=== PATIENT | female | born 1980 ===

== ENCOUNTER 2016-09-08 07:11 | Inpatient (IN) | payer MEDICAID, OTHER ==
[2016-09-08 07:20] VITALS: BMI 43.0
[2016-09-08] MEDS ORDERED: Sodium Chloride 0.9% 1,000 ML IV STA (07:26)
[2016-09-08] MEDS ORDERED: Morphine 4 mg/ml ISec IVP STA ×2 (07:26→08:14)
--- NOTE | 2016-09-08 07:33 | ED PDOC ---
Arrival/HPI - General Chief Complaint: Abdominal Pain Time Seen by Provider: 09/08/16 07:18 Historian: Patient - History of Present Illness Narrative History of Present Illness (Text): 09/08/16 07:22 Racquel Hope is a 36 year old female whose past medical history includes a Hysterectomy and a , who presents to the Emergency department for diffuse abdominal pain. Symptoms began two weeks ago but worsened last night. Patient states symptoms are accompanied with nausea and vomiting. Patient denies chest pain, shortness of breath, headache, fever, cough, changes in bowel habits, dysuria, hematuria, frequency, vaginal discharge, vaginal bleeding , or any other complaints at this time. PMD: None reported Time/Duration: 24 hours, > week (2 weeks) Symptom Onset: Gradual Symptom Course: Unchanged Activities at Onset: Light Context: Home Past Medical History - Provider Review Nursing Documentation Reviewed: Yes - Infectious Disease Hx of Infectious Diseases: None - Past Medical History Past Medical History: No Previous - Cardiac Hx Cardiac Disorders: No - Pulmonary Hx Respiratory Disorders: No - Neurological Hx Neurological Disorder: No - HEENT Hx HEENT Disorder: No - Renal Hx Renal Disorder: No - Endocrine/Metabolic Hx Endocrine Disorders: No - Hematological/Oncological Hx Blood Disorders: No - Integumentary Hx Dermatological Disorder: No - Musculoskeletal/Rheumatological Hx Musculoskeletal Disorders: No - Gastrointestinal Hx Gastrointestinal Disorders: No - Genitourinary/Gynecological Hx Genitourinary Disorders: No - Psychiatric Hx Anxiety: Yes Hx Depression: Yes Hx Substance Use: No - Surgical History Hx Section: Yes Hx Hysterectomy: Yes Hx Tonsillectomy: Yes - Anesthesia Hx Anesthesia: Yes Hx Anesthesia Reactions: No Hx Malignant Hyperthermia: No - Suicidal Assessment Feels Threatened In Home Enviroment: No Family/Social History - Physician Review Nursing Documentation Reviewed: Yes Family/Social History: No Known Family HX Smoking Status: Heavy Smoker > 10 Cigarettes Daily Hx Alcohol Use: No Hx Substance Use: No Substance used: marijuana Hx Substance Use Treatment: No Allergies/Home Meds Allergies/Adverse Reactions: Allergies No Known Allergies Allergy (Verified 09/08/16 07:22) Home Medications: Home Meds Medication Instructions Recorded Confirmed No Known Home Med 09/08/16 09/08/16 Review of Systems - Physician Review All systems were reviewed & negative as marked: Yes - Review of Systems Constitutional: Normal. absent: Fevers Eyes: Normal. absent: Vision Changes ENT: Normal Respiratory: Normal. absent: SOB, Cough Cardiovascular: Normal. absent: Chest Pain Gastrointestinal: Abdominal Pain (Diffuse Abdominal Pain), Nausea, Vomiting. absent: Diarrhea, Appetite Changes Genitourinary Female: Normal. absent: Dysuria, Frequency, Hematuria, Urine Output Changes Musculoskeletal: Normal. absent: Back Pain, Neck Pain Skin: Normal Neurological: Normal. absent: Headache, Dizziness Endocrine: Normal Hemo/Lymphatic: Normal Psychiatric: Normal Physical Exam Vital Signs Reviewed: Yes Vital Signs Temp Pulse Resp BP Pulse Ox 09/08/16 07:20 98.3 F 86 18 158/100 H 100 Temperature: Afebrile Blood Pressure: Hypertensive Pulse: Regular Respiratory Rate: Normal Appearance: Positive for: Well-Appearing, Non-Toxic, Uncomfortable Pain Distress: None Mental Status: Positive for: Alert and Oriented X 3 - Systems Exam Head: Present: Atraumatic, Normocephalic Pupils: Present: PERRL Conjunctiva: Present: Normal Mouth: Present: Moist Mucous Membranes Respiratory/Chest: Present: Clear to Auscultation, Good Air Exchange. No: Respiratory Distress, Accessory Muscle Use Cardiovascular: Present: Regular Rate and Rhythm, Normal S1, S2. No: Murmurs Abdomen: Present: Tenderness (RUQ Tenderness), Normal Bowel Sounds. No: Distention, Peritoneal Signs, Rebound, Guarding Neurological: Present: GCS=15, CN II-XII Intact, Speech Normal Skin: Present: Warm, Dry, Normal Color. No: Rashes Psychiatric: Present: Alert, Oriented x 3, Normal Insight, Normal Concentration Medical Decision Making ED Course and Treatment: 09/08/16 07:22 Impression: 36 year old female with diffuse abdominal pain accompanied with nausea and vomiting since yesterday. Differential Diagnosis include but are not limited to: Cholelithiasis Plan: -- Abdomen US -- Labs, UA -- Morphine -- IV Fluids -- Zofran -- Reassess and disposition Prior Visits: Notes and results from previous visits were reviewed. Patient was last seen in the ED on 01/21/16 for nausea and multiple episodes of diarrhea. Progress Notes: 09/08/16 08:10 Procedure: Sonographic evaluation of the abdomen. Dictator: David Noyola MD Impression: Fatty liver. Cholelithiasis. 09/08/16 08:22 Patient has persistent pain with leukocytosis and multiple episodes of vomiting in the ER. Dr. Lim on consult, who will rule out Cholecystitis with HIDA scan. Case discussed with surgical oncologist will be in touch Dr. Coelho. 09/08/16 09:19 EKG: Ordered, reviewed, and independently interpreted the EKG. Rate : 58 BPM Rhythm : Sinus Bradycardia Interpretation : No ST-segment elevations or depressions, no T-wave inversions, normal intervals. - Lab Interpretations Lab Results: 09/08/16 07:30 09/08/16 07:30 Lab Results 09/08/16 07:30: WBC 12.6 H D, RBC 4.43, Hgb 13.3, Hct 40.4, MCV 91.2, MCH 30.0, MCHC 32.9, RDW 14.9 H, Plt Count 266, MPV 12.4 H, Gran % 69.7 H, Lymph % (Auto) 19.7 L, [place] % (Auto) 6.5 H, Eos % (Auto) 3.8, Baso % (Auto) 0.3, Gran # 8.81 H , Lymph # 2.5, [place] # 0.8 H, Eos # 0.5, Baso # 0.04, PT 9.8 L, INR 0.91 L, APTT 30.1, Sodium 142, Potassium 4.0, Chloride 105, Carbon Dioxide 26, Anion Gap 15, BUN 15, Creatinine 0.9, Est GFR ( Amer) > 60, Est GFR (Non-Af Amer) > 60 , Random Glucose 126 H, Calcium 9.0, Total Bilirubin 0.8, Direct Bilirubin 0.4, AST 24, ALT 38, Alkaline Phosphatase 79, Total Protein 8.7 H, Albumin 4.3, Globulin 4.5, Albumin/Globulin Ratio 1.0 L, Lipase 197 I have reviewed the lab results: Yes - RAD Interpretation Narrative RAD Interpretations (Text): 09/08/16 08:10 Procedure: Sonographic evaluation of the abdomen. Dictator: David Noyola MD FINDINGS: LIVER: Measures cm. Heterogeneous echogenicity of the liver parenchyma. No mass. No intrahepatic bile duct dilatation. GALLBLADDER: Gallstones. No wall thickening. COMMON BILE DUCT: Measures mm. No stones. No dilatation. PANCREAS: Unremarkable as visualized. No mass. No ductal dilatation. RIGHT KIDNEY: Measures cm. Normal echogenicity. No calculus, mass, or hydronephrosis. LEFT KIDNEY: Measures cm. Normal echogenicity. No calculus, mass, or hydronephrosis. SPLEEN: Normal in size and contour. No mass. AORTA: No aneurysmal dilatation. IVC: Unremarkable. OTHER FINDINGS: None. Impression: Fatty liver. Cholelithiasis. Radiology Orders: 09/08/16 07:26 ABDOMEN COMPLETE [US] Stat 09/08/16 08:18 CXR [CHEST PORTABLE] [RAD] Stat [employer] Specialist: Radiologist - Medication Orders Current Medication Orders: Acetaminophen (Tylenol 325mg Tab) 650 mg PO Q6 PRN PRN Reason: Fever >100.4 F Heparin Sodium (Porcine) (Heparin) 5,000 units SC Q12 YOLI PRN Reason: Protocol Last Admin: 09/08/16 10:33 Dose: 5,000 UNITS Subcutaneous Administrations Document 09/08/16 10:33 [facility]AY (Rec: 09/08/16 10:33 [id number]) Injection Site MAR Injection Site Left Arm Charges for Administration # of Subcutaneous Administrations 1 Hydromorphone HCl (Dilaudid) 0.5 mg IVP Q4H PRN PRN Reason: Pain, severe (8-10) Last Admin: 09/08/16 17:09 Dose: 0.5 MG MAR Pain Assessment Document 09/08/16 17:09 MCKAY (Rec: 09/08/16 17:10 [id number]) Pain Reassessment Is this a pain reassessment? No Sleep Is patient sleeping during reassessment? No Presence of Pain Presence of Pain Yes Pain Scale Used Pain Scale Used Numeric Location Left, Right or Bilateral Right Upper or Lower Upper Pain Location Body Site Abdomen Description Description Constant Intensity of Pain at present 9 IVP Administration Document 09/08/16 17:09 MCKAY (Rec: 09/08/16 17:10 [id number]) Charges for Administration # of IVP Administrations 1 Sodium Chloride (Sodium Chloride 0.9%) 1,000 mls @ 100 mls/hr IV .Q10H YOLI Last Admin: 09/08/16 10:34 Dose: 100 MLS/HR eMAR Start Stop Document 09/08/16 10:34 [facility]AY (Rec: 09/08/16 10:34 [id number]) Intravenous Solution Start Date 09/08/16 Start Time 10:34 Ceftriaxone Sodium (Rocephin 1 Gram Ivpb) 100 mls @ 100 mls/hr IVPB DAILY YOLI PRN Reason: Protocol Last Admin: 09/08/16 10:33 Dose: 100 MLS/HR eMAR Start Stop Document 09/08/16 10:33 [facility]AY (Rec: 09/08/16 10:34 [id number]) Intravenous Solution Start Date 09/08/16 Start Time 10:33 End Date 09/08/16 End time 11:34 Total Infusion Time 61 Metronidazole (Flagyl) 100 mls @ 100 mls/hr IVPB Q8 YOLI PRN Reason: Protocol Last Admin: 09/08/16 14:45 Dose: 100 MLS/HR eMAR Start Stop Document 09/08/16 14:45 MCKAY (Rec: 09/08/16 16:34 [id number]) Intravenous Solution Start Date 09/08/16 Start Time 14:45 End Date 09/08/16 End time 15:45 Total Infusion Time 60 Nicotine (Nicoderm Cq) 1 patch TD DAILY [facility] Last Admin: 09/08/16 10:33 Dose: 1 PATCH MAR Patch Placement/Removal Document 09/08/16 10:33 MCKAY (Rec: 09/08/16 10:33 [id number]) Patch Removal Removal of previous patch done No: First Patch Patch Placement Left, Right or Bilateral Right Upper or Lower Upper Pain Location Body Site Arm Ondansetron HCl (Zofran Inj) 4 mg IVP Q6H PRN PRN Reason: Nausea/Vomiting Pantoprazole Sodium (Protonix Inj) 40 mg IVP DAILY [facility] Last Admin: 09/08/16 10:32 Dose: 40 MG IVP Administration Document 09/08/16 10:32 MCKAY (Rec: 09/08/16 10:32 [id number]) Charges for Administration # of IVP Administrations 1 Discontinued Medications Sodium Chloride (Sodium Chloride 0.9%) 1,000 mls @ 1,000 mls/hr IV .Q1H STA Stop: 09/08/16 08:25 Last Admin: 09/08/16 07:35 Dose: 1,000 MLS/HR eMAR Start Stop Document 09/08/16 07:35 [facility] (Rec: 09/08/16 07:36 [facility] [id number]) Intravenous Solution Start Date 09/08/16 Start Time 07:35 End Date 09/08/16 End time 08:36 Total Infusion Time 61 Piperacillin Sod/Tazobactam Sod (Zosyn 3.375 In Ns 100ml) 100 mls @ 200 mls/hr IVPB STAT STA PRN Reason: Protocol Stop: 09/08/16 09:08 Last Admin: 09/08/16 09:00 Dose: 200 MLS/HR eMAR Start Stop Document 09/08/16 09:00 [facility] (Rec: 09/08/16 09:00 [facility] [id number]) Intravenous Solution Start Date 09/08/16 Start Time 09:00 End Date 09/08/16 End time 09:30 Total Infusion Time 30 Morphine Sulfate (Morphine) 4 mg IVP STAT STA Stop: 09/08/16 07:27 Last Admin: 09/08/16 07:33 Dose: 4 MG MAR Pain Assessment Document 09/08/16 07:33 [facility] (Rec: 09/08/16 07:35 [facility] [id number]) Pain Reassessment Is this a pain reassessment? No Sleep Is patient sleeping during reassessment? No Presence of Pain Presence of Pain Yes Pain Scale Used Pain Scale Used Numeric Location Left, Right or Bilateral Right Upper or Lower Upper Pain Location Body Site Abdomen Description Description Sharp Intensity of Pain at present 10 IVP Administration Document 09/08/16 07:33 [facility] (Rec: 09/08/16 07:35 [id number]) Charges for Administration # of IVP Administrations 1 Morphine Sulfate (Morphine) 4 mg IVP STAT STA Stop: 09/08/16 08:15 Last Admin: 09/08/16 08:21 Dose: 4 MG MAR Pain Assessment Document 09/08/16 08:21 [facility] (Rec: 09/08/16 08:21 [facility] [id number]) Pain Reassessment Is this a pain reassessment? Yes Sleep Is patient sleeping during reassessment? No Presence of Pain Presence of Pain Yes Pain Scale Used Pain Scale Used Numeric Location Left, Right or Bilateral Right Upper or Lower Upper Pain Location Body Site Abdomen Description Intensity of Pain at present 10 IVP Administration Document 09/08/16 08:21 [facility] (Rec: 09/08/16 08:21 [facility] [id number]) Charges for Administration # of IVP Administrations 1 Ondansetron HCl (Zofran Inj) 4 mg IVP STAT STA Stop: 09/08/16 07:27 Last Admin: 09/08/16 07:33 Dose: 4 MG IVP Administration Document 09/08/16 07:33 [facility] (Rec: 09/08/16 07:33 [facility] [id number]) Charges for Administration # of IVP Administrations 1 Ondansetron HCl (Zofran Inj) 4 mg IVP STAT STA Stop: 09/08/16 08:15 Last Admin: 09/08/16 08:21 Dose: 4 MG IVP Administration Document 09/08/16 08:21 [facility] (Rec: 09/08/16 08:21 [facility] [id number]) Charges for Administration # of IVP Administrations 1 Pneumococcal Polyvalent Vaccine (Pneumovax 23 Vaccine) 0.5 ml IM .ONCE ONE Stop: 09/08/16 14:49 - Scribe Statement The provider has reviewed the documentation as recorded by the Rocio Mark Provider Attestation: All medical record entries made by the Rocio were at my direction and personally dictated by me. I have reviewed the chart and agree that the record accurately reflects my personal performance of the history, physical exam, medical decision making, and the department course for this patient. I have also personally directed, reviewed, and agree with the discharge instructions and disposition. Disposition/Present on Arrival - Present on Arrival Any Indicators Present on Arrival: No History of DVT/PE: No History of Uncontrolled Diabetes: No Urinary Catheter: No History of Decub. Ulcer: No History Surgical Site Infection Following: None - Disposition Have Diagnosis and Disposition been Completed?: Yes Diagnosis: Intractable vomiting, Intractable abdominal pain, Leukocytosis, Biliary colic Disposition: HOSPITALIZED Disposition Time: 17:51 Condition: STABLE
[2016-09-08 07:36] LABS: ADD MANUAL DIFF? NO
[2016-09-08 07:45] LABS: BASO # 0.04 K/mm3 (0.0-2.0); BASO % 0.3 % (0.0-3.0); EOS # 0.5 (0.0-0.7); EOS % 3.8 % (1.5-5.0); GRAN # 8.81 (1.4-6.5); GRAN % 69.7 % (50.0-68.0); HEMATOCRIT 40.4 % (36.0-48.0); LYMPH # 2.5 (1.2-3.4); LYMPH % 19.7 % (22.0-35.0); MEAN CELL VOLUME 91.2 fL (80.0-105.0); MEAN CORPUSCULAR HGB CONC 32.9 g/dl (31.0-37.0); MEAN PLATELET VOLUME 12.4 fl (7.0-11.0); MONO # 0.8 (0.1-0.6); MONO % 6.5 % (1.0-6.0); PLATELET COUNT 266 10^3/uL (120.0-450.0); RED CELL DISTRIBUTION WIDTH 14.9 % (11.5-14.5); WHITE BLOOD COUNT 12.6 10^3/ul (4.5-11.0)
[2016-09-08 07:48] LABS: ALKALINE PHOSPHATASE 79 U/L (38-133); ALT/SGPT 38 U/L (7-56); AST/SGOT 24 U/L (15-39); BILIRUBIN,DIRECT 0.4 mg/dL (0.0-0.4); BILIRUBIN,TOTAL 0.8 mg/dL (0.2-1.3); BLOOD UREA NITROGEN 15 mg/dL (7-21); CARBON DIOXIDE 26 mmol/L (21-33); CHLORIDE 105 mmol/L (98-107); GFR AFRICAN-AMERICAN > 60; GLUCOSE,RANDOM 126 mg/dL (70-110); SODIUM 142 mmol/L (132-148); TOTAL PROTEIN 8.7 g/dL (5.8-8.3)
[2016-09-08 07:54] LABS: INR 0.91 (0.93-1.08); PARTIAL THROMBOPLASTIN TIME 30.1 Seconds (23.7-30.8)
[2016-09-08 07:59] LABS: LIPASE 197 U/L (23-300)
--- NOTE | 2016-09-08 08:12 | US ---
HISTORY: ruq pain COMPARISON: None. TECHNIQUE: Sonographic evaluation of the abdomen. FINDINGS: LIVER: Measures cm. Heterogeneous echogenicity of the liver parenchyma. No mass. No intrahepatic bile duct dilatation. GALLBLADDER: Gallstones. No wall thickening. COMMON BILE DUCT: Measures mm. No stones. No dilatation. PANCREAS: Unremarkable as visualized. No mass. No ductal dilatation. RIGHT KIDNEY: Measures cm. Normal echogenicity. No calculus, mass, or hydronephrosis. LEFT KIDNEY: Measures cm. Normal echogenicity. No calculus, mass, or hydronephrosis. SPLEEN: Normal in size and contour. No mass. AORTA: No aneurysmal dilatation. IVC: Unremarkable. OTHER FINDINGS: None. IMPRESSION: Fatty liver. Cholelithiasis.
[2016-09-08] MEDS ORDERED: Piperacillin/Tazobact 3.375 gm 100 ML IVPB STA (08:39)
--- NOTE | 2016-09-08 08:40 | RAD ---
PROCEDURE: CHEST RADIOGRAPH, 1 VIEW HISTORY: preop COMPARISON: None available. FINDINGS: LUNGS: Clear. PLEURA: No pneumothorax or pleural fluid seen. CARDIOVASCULAR: Normal. OSSEOUS STRUCTURES: No significant abnormalities. VISUALIZED UPPER ABDOMEN: Normal. OTHER FINDINGS: None. IMPRESSION: No active disease.
--- NOTE | 2016-09-08 09:02 | CP.PCM.CON ---
<Sha Boyd - Last Filed: 09/09/16 06:04> History of Present Illness - History of Present Illness History of Present Illness: General Surgery Consult Note for Dr. Hussein CC: Abdominal Pain X 1 day HPI: This is a 36F with a PMH of anxiety, depression, substance abuse and morbid obesity, who presents to the ED with a complaint of abdominal pain that woke her from sleep at 3am. She reports that she has had similar less intense attacks of pain over the past month. She has been unable to recognize anything that brings it on, makes it better or makes it worse. She reports that her last meal before going to sleep was [place] food. At 3am she reports that she developed right upper quadrant pain that was sharp in character and made worse with movement. She reports non bloody, but bilious emesis. The patient reports that last BM was soft and non bloody early this morning. She denies any fevers, chills, chest pain, SOB. PMH: Anxiety, Depression PSH: C- Section 2007, Hysterectomy 2009, Tonsillectomy ALL: NKDA Social: .5ppd , Denies ETOH, Smokes Marijuana Family History; Non contributory Review of Systems - Constitutional Constitutional: absent: Chills, Fever - EENT Eyes: absent: Change in Vision Ears: absent: Ear Pain, Tinnitus Nose/Mouth/Throat: absent: Nasal Congestion, Nasal Discharge - Cardiovascular Cardiovascular: absent: Chest Pain, Dyspnea - Respiratory Respiratory: absent: Dyspnea - Gastrointestinal Gastrointestinal: Abdominal Pain. absent: Diarrhea - Genitourinary Genitourinary: absent: Dysuria Past Patient History - Infectious Disease Hx of Infectious Diseases: None - Past Social History Smoking Status: Heavy Smoker > 10 Cigarettes Daily - CARDIAC Hx Cardiac Disorders: No - PULMONARY Hx Respiratory Disorders: No - NEUROLOGICAL Hx Neurological Disorder: No - HEENT Hx HEENT Problems: No - RENAL Hx Chronic Kidney Disease: No - ENDOCRINE/METABOLIC Hx Endocrine Disorders: No - HEMATOLOGICAL/ONCOLOGICAL Hx Blood Disorders: No - INTEGUMENTARY Hx Dermatological Problems: No - MUSCULOSKELETAL/RHEUMATOLOGICAL Hx Musculoskeletal Disorders: No - GASTROINTESTINAL Hx Gastrointestinal Disorders: No - GENITOURINARY/GYNECOLOGICAL Hx Genitourinary Disorders: No - PSYCHIATRIC Hx Anxiety: Yes Hx Depression: Yes Hx Substance Use: No - SURGICAL HISTORY Hx Section: Yes Hx Hysterectomy: Yes Hx Tonsillectomy: Yes - ANESTHESIA Hx Anesthesia: Yes Hx Anesthesia Reactions: No Hx Malignant Hyperthermia: No Meds Allergies/Adverse Reactions: Allergies Allergy/AdvReac Type Severity Reaction Status Date / Time No Known Allergies Allergy Verified 09/08/16 07:22 - Medications Medications: Current Medications Piperacillin Sod/Tazobactam Sod (Zosyn 3.375 In Ns 100ml) 100 mls @ 200 mls/hr IVPB STAT STA PRN Reason: Protocol Stop: 09/08/16 09:08 Physical Exam - Constitutional Additional comments: Uncomfortable - Head Exam Head Exam: ATRAUMATIC, NORMOCEPHALIC - Eye Exam Eye Exam: EOMI, Normal appearance - ENT Exam ENT Exam: Mucous Membranes Moist, Normal Exam - Respiratory Exam Respiratory Exam: NORMAL BREATHING PATTERN - Cardiovascular Exam Cardiovascular Exam: +S1, +S2 - GI/Abdominal Exam GI & Abdominal Exam: Soft, Tenderness (RUQ). absent: Distended, Firm, Guarding , Hernia, Rigid Additional comments: Mckeon's Sign - Neurological Exam Neurological exam: Alert, Oriented x3 - Psychiatric Exam Psychiatric exam: Normal Affect, Normal Mood - Skin Skin Exam: Dry, Intact Results - Vital Signs Recent Vital Signs: Last Vital Signs Temp 98.3 F 09/08/16 07:20 Pulse 86 09/08/16 07:20 Resp 18 09/08/16 07:20 BP 158/100 H 09/08/16 07:20 Pulse Ox 100 09/08/16 07:20 - Labs Result Diagrams: 09/08/16 07:30 09/08/16 07:30 - Imaging and Cardiology US - abdomen Status: Image reviewed by me, Report reviewed by me Assessment & Plan - Assessment and Plan (Free Text) Assessment: This is a 36F with no significant PMH presents with RUQ Pain US: Positive for stones negative for wall thickness, negative for CBD dilation. Afebrile WBC 12.5, Tibili 1.6 HIDA Pending Rocephin and Flagyl IVF Dilaudid for pain NPO D/W Dr. Keenan Boyd PGY-7 <Agustín Hussein - Last Filed: 09/10/16 14:21> Results - Vital Signs Recent Vital Signs: Last Vital Signs Temp 98.5 F 09/10/16 06:00 Pulse 77 09/10/16 06:00 Resp 19 09/10/16 06:00 BP 157/90 H 09/10/16 06:00 Pulse Ox 96 09/10/16 06:00 - Labs Result Diagrams: 09/10/16 07:30 09/10/16 07:30 Labs: Laboratory Results - last 24 hr 09/09/16 09/10/16 15:00 07:30 WBC 11.6 H RBC 4.04 Hgb 13.0 12.0 Hct 38.5 36.6 MCV 90.6 MCH 29.7 MCHC 32.8 RDW 14.8 H Plt Count 233 MPV 12.5 H Sodium 145 Potassium 3.7 Chloride 105 Carbon Dioxide 28 Anion Gap 16 BUN 9 Creatinine 0.8 Est GFR ( Amer) > 60 Est GFR (Non-Af Amer) > 60 Random Glucose 79 Calcium 8.3 L Total Bilirubin 0.9 AST 33 ALT 33 Alkaline Phosphatase 74 Total Protein 7.8 Albumin 4.0 Globulin 3.8 Albumin/Globulin Ratio 1.0 L Assessment & Plan - Assessment and Plan (Free Text) Assessment: Patient was seen, evaluated and examined by me. I agree with the assessment and plan as per the resident's note. - Date & Time Date: 09/08/16 Time: 11:20
[2016-09-08] MEDS: HYDROmorphone 0.5 mg/0.5 ml ISec IVP PRN ×4 (09:17→22:02)
--- NOTE | 2016-09-08 09:58 | CP.PCM.HP ---
<Sury Mejia - Last Filed: 09/08/16 09:52> History of Present Illness - History of Present Illness History of Present Illness: CC: abd pain 36 year old female with no significant past medical history presents with abdominal pain. Pain has been intermittent for one month but this morning pain was so severe that it woke pt up from sleep. Pain this morning was accompanied with nausea. Pain is not associated with meals. Patient also c/o of vomiting, chills and cough. Patient denies having any Cp, SOB, fevers, or urinary symptoms. Last meal was last night for dinner. She had [place] food. Denies having any vomiting over night. Patient has seen her PMD, Dr. Catracho Samano for this pain about 2 months ago. At the time she was given a prescription for acid reflux. Patient is currently not taking any medications. Pmhx: denies Sx: hysterectomy, c section, tonsillectomy NKDA Medications: none PMD: Dr. Samano Social: .5 ppd, smoke marijuana, no ETOH use. Present on Admission - Present on Admission Any Indicators Present on Admission: No Review of Systems - Review of Systems All systems: reviewed and no additional remarkable complaints except Past Patient History - Infectious Disease Hx of Infectious Diseases: None - Past Social History Smoking Status: Heavy Smoker > 10 Cigarettes Daily Chewing Tobacco Use: No Cigar Use: No Alcohol: None Drugs: Cannabis - CARDIAC Hx Cardiac Disorders: No - PULMONARY Hx Respiratory Disorders: No - NEUROLOGICAL Hx Neurological Disorder: No - HEENT Hx HEENT Problems: No - RENAL Hx Chronic Kidney Disease: No - ENDOCRINE/METABOLIC Hx Endocrine Disorders: No - HEMATOLOGICAL/ONCOLOGICAL Hx Blood Disorders: No - INTEGUMENTARY Hx Dermatological Problems: No - MUSCULOSKELETAL/RHEUMATOLOGICAL Hx Musculoskeletal Disorders: No - GASTROINTESTINAL Hx Gastrointestinal Disorders: No - GENITOURINARY/GYNECOLOGICAL Hx Genitourinary Disorders: No - PSYCHIATRIC Hx Anxiety: Yes Hx Depression: Yes Hx Substance Use: No - SURGICAL HISTORY Hx Section: Yes Hx Hysterectomy: Yes Hx Tonsillectomy: Yes - ANESTHESIA Hx Anesthesia: Yes Hx Anesthesia Reactions: No Hx Malignant Hyperthermia: No Meds Allergies/Adverse Reactions: Allergies Allergy/AdvReac Type Severity Reaction Status Date / Time No Known Allergies Allergy Verified 09/08/16 07:22 Physical Exam - Constitutional Appears: Non-toxic, No Acute Distress - Head Exam Head Exam: ATRAUMATIC, NORMOCEPHALIC - Eye Exam Eye Exam: EOMI Pupil Exam: PERRL - ENT Exam ENT Exam: Mucous Membranes Moist - Respiratory Exam Respiratory Exam: Clear to Auscultation Bilateral. absent: Rales, Rhonchi, Wheezes - Cardiovascular Exam Cardiovascular Exam: REGULAR RHYTHM, RRR, +S1, +S2. absent: Diastolic murmur, Gallop, Rubs, Systolic Murmur - GI/Abdominal Exam GI & Abdominal Exam: Normal Bowel Sounds, Soft, Tenderness (RUQ. + Mckeon's sign ). absent: Distended, Firm, Guarding, Organomegaly, Rigid - Extremities Exam Extremities exam: Negative for: pedal edema, tenderness - Neurological Exam Neurological exam: Alert, Oriented x3 - Psychiatric Exam Psychiatric exam: Normal Affect, Normal Mood - Skin Skin Exam: Dry, Intact, Normal Color, Warm Results - Vital Signs Recent Vital Signs: Last Vital Signs Temp 98.3 F 09/08/16 07:20 Pulse 86 09/08/16 07:20 Resp 18 09/08/16 07:20 BP 158/100 H 09/08/16 07:20 Pulse Ox 100 09/08/16 07:20 - Labs Result Diagrams: 09/08/16 07:30 09/08/16 07:30 - EKG Data EKG Interpreted by: Myself EKG shows normal: Sinus rhythm Rate: Normal Assessment & Plan - Assessment and Plan (Free Text) Assessment: 36 y/o female with no past medical history is admitted for RUQ pain likely due to cholelithiasis see on US of abdomen. Patient is afebrile. On blood work, patient has leukocytosis at 12.6. LFTs and lipase are WNL. 1. Cholelithiasis - NPO - NS 100 cc - pain management: Diluadid .5 mg PO Q4 prn - Surgery, Dr. Menjivar is consulted. - HIDA scan pending - Rocephin & flagyl - Zofran for nausea prn - Tylenol prn for fever 2. Tobacco abuse - Nicotin patch 3. Prophylaxis - heparin q12 - protonix 40 mg IVP qd Case discussed with attending Dr. Orr - Date & Time Date: 09/08/16 Time: 10:00 <Remedios Lim - Last Filed: 09/08/16 10:33> Results - Vital Signs Recent Vital Signs: Last Vital Signs Temp 98.3 F 09/08/16 07:20 Pulse 86 09/08/16 07:20 Resp 18 09/08/16 07:20 BP 158/100 H 09/08/16 07:20 Pulse Ox 100 09/08/16 07:20 - Labs Result Diagrams: 09/08/16 07:30 09/08/16 07:30 Assessment & Plan - Assessment and Plan (Free Text) Assessment: Attending note; Patient is a 36-year-old female with a past medical history of GERD , anxiety , obesity is admitted with intractable right upper quadrant pain since this morning. Patient had recurrent colicky pain for the past 1 month. Abdominal ultrasound shows gallstones. Continue IV Dilaudid for pain management. Surgery evaluation appreciated. Nothing by mouth,IV fluids and IV antibiotics. HIDA scan ordered. History of smoking and marijuana use; complete cessation is strongly advised. History of anxiety depression; used to take gabapentin and trazodone. Currently not on any medication for over 3 months. Advised to follow-up with therapist at [place]. Obesity; diet, exercise and weight loss advised. Upon discharge patient will follow-up with PMD Dr.mervin Pozo. The diagnosis and treatment plan discussed with patient in detail. EKG and chest x-ray normal. Patient is medically stable for surgical procedure if indicated. Attending/Attestation - Attestation I have personally seen and examined this patient.: Yes I have fully participated in the care of the patient.: Yes I have reviewed all pertinent clinical information: Yes
[2016-09-08] MEDS: cefTRIAXone 1 gm 100 ML IVPB SCH (10:33)
[2016-09-08] MEDS: Sodium Chloride 0.9% 1,000 ML IV SCH ×2 (10:34→22:05)
[2016-09-08] MEDS: metroNIDAZOLE IV 500 mg/100 ml 100 ML IVPB SCH ×3 (10:40→22:04)
[2016-09-08] MEDS ORDERED: Pneumococcal 23-Valent Vaccine IM ONE (14:48)
--- NOTE | 2016-09-08 20:01 | CARD ---
APPROVED REPORT EKG Measurement Heart [id number] <Conclusion> Sinus bradycardia Otherwise normal ECG
[2016-09-09 03:22] LABS: URINE BILIRUBIN NEGATIVE (NEGATIVE); URINE BLOOD NEGATIVE (NEGATIVE); URINE GLUCOSE (UA) NEGATIVE (NEGATIVE); URINE KETONE NEGATIVE (NEGATIVE); URINE LEUKOCYTE ESTERASE NEGATIVE Leu/uL (NEGATIVE); URINE PROTEIN NEGATIVE mg/dL (<30 mg/dL); URINE UROBILINOGEN 0.2 E.U./dL (<1 E.U./dL)
[2016-09-09 03:23] LABS: URINE APPEARANCE CLEAR (CLEAR); URINE COLOR YELLOW (YELLOW)
[2016-09-09] MEDS: metroNIDAZOLE IV 500 mg/100 ml 100 ML IVPB SCH ×3 (06:35→21:25)
[2016-09-09 07:48] LABS: ADD MANUAL DIFF? NO
[2016-09-09 07:52] LABS: BASO # 0.05 K/mm3 (0.0-2.0); BASO % 0.5 % (0.0-3.0); EOS # 0.5 (0.0-0.7); EOS % 4.1 % (1.5-5.0); GRAN % 59.6 % (50.0-68.0); HEMATOCRIT 39.4 % (36.0-48.0); LYMPH % 27.3 % (22.0-35.0); MEAN CELL VOLUME 91.2 fL (80.0-105.0); MEAN CORPUSCULAR HEMOGLOBIN 30.6 pg (25.0-35.0); MEAN CORPUSCULAR HGB CONC 33.5 g/dl (31.0-37.0); MONO # 0.9 (0.1-0.6); MONO % 8.5 % (1.0-6.0); PLATELET COUNT 246 10^3/uL (120.0-450.0); RED CELL DISTRIBUTION WIDTH 14.8 % (11.5-14.5); WHITE BLOOD COUNT 10.9 10^3/ul (4.5-11.0)
[2016-09-09 08:04] LABS: ALKALINE PHOSPHATASE 80 U/L (38-133); ALT/SGPT 42 U/L (7-56); AST/SGOT 32 U/L (15-39); BILIRUBIN,TOTAL 1.5 mg/dL (0.2-1.3); BLOOD UREA NITROGEN 11 mg/dL (7-21); CALCIUM 8.5 mg/dL (8.4-10.5); CARBON DIOXIDE 30 mmol/L (21-33); CHLORIDE 101 mmol/L (98-107); GFR AFRICAN-AMERICAN > 60; GLUCOSE,RANDOM 96 mg/dL (70-110); POTASSIUM 3.7 mmol/L (3.6-5.0); SODIUM 140 mmol/L (132-148); TOTAL PROTEIN 8.6 g/dL (5.8-8.3)
[2016-09-09] MEDS ORDERED: Propofol 10 mg/ml Inj (20 ML) ONE (08:38)
[2016-09-09] MEDS ORDERED: Midazolam 2 MG/2 ML VIAL ONE (08:39)
[2016-09-09] MEDS ORDERED: Rocuronium 10 mg/ml (5 ml) ONE ×2 (08:41→09:22)
[2016-09-09] MEDS ORDERED: Bupivacaine 0.5% Inj(30mL) ONE (08:54)
[2016-09-09] MEDS ORDERED: Bupivacaine 0.25% Inj(30mL) ONE (08:54)
[2016-09-09] MEDS ORDERED: Iohexol 240 (50 ml) ONE (08:54)
--- NOTE | 2016-09-09 10:02 | CP.PCM.PN ---
<Sury Mejia - Last Filed: 09/09/16 16:09> Subjective - Date & Time of Evaluation Date of Evaluation: 09/09/16 Time of Evaluation: 09:59 - Subjective Subjective: HOSPITALIST PROGRESS NOTE. Pt is seen and examined at bedside post OR. Patient is resting comfortably. C/ o pain at incision sight. Denies passing gas. Denies having any CP, SOB, N/V. Objective - Vital Signs/Intake and Output Vital Signs (last 24 hours): Temp Pulse Resp BP Pulse Ox 98.7 F 73 18 97/49 L 96 09/09/16 07:57 09/09/16 07:57 09/09/16 07:57 09/09/16 07:57 09/09/16 07:57 Intake and Output: 09/09/16 09/09/16 06:59 18:59 Intake Total 0 Balance 0 - Medications Medications: Current Medications Acetaminophen (Tylenol 325mg Tab) 650 mg PO Q6 PRN PRN Reason: Fever >100.4 F Heparin Sodium (Porcine) (Heparin) 5,000 units SC Q12 [facility] PRN Reason: Protocol Last Admin: 09/08/16 22:04 Dose: 5,000 units Hydromorphone HCl (Dilaudid) 0.5 mg IVP Q4H PRN PRN Reason: Pain, severe (8-10) Last Admin: 09/08/16 22:02 Dose: 0.5 mg Sodium Chloride (Sodium Chloride 0.9%) 1,000 mls @ 100 mls/hr IV .Q10H [facility] Last Admin: 09/08/16 22:05 Dose: 100 mls/hr Ceftriaxone Sodium (Rocephin 1 Gram Ivpb) 100 mls @ 100 mls/hr IVPB DAILY [facility] PRN Reason: Protocol Last Admin: 09/08/16 10:33 Dose: 100 mls/hr Metronidazole (Flagyl) 100 mls @ 100 mls/hr IVPB Q8 [facility] PRN Reason: Protocol Last Admin: 09/09/16 06:35 Dose: 100 mls/hr Nicotine (Nicoderm Cq) 1 patch TD DAILY [facility] Last Admin: 09/08/16 10:33 Dose: 1 patch Ondansetron HCl (Zofran Inj) 4 mg IVP Q6H PRN PRN Reason: Nausea/Vomiting Last Admin: 09/08/16 20:54 Dose: 4 mg Pantoprazole Sodium (Protonix Inj) 40 mg IVP DAILY [facility] Last Admin: 09/08/16 10:32 Dose: 40 mg - Labs Labs: 09/09/16 07:47 09/09/16 07:47 PT 9.8 Seconds (9.9-11.8) L 09/08/16 07:30 INR 0.91 (0.93-1.08) L 09/08/16 07:30 APTT 30.1 Seconds (23.7-30.8) 09/08/16 07:30 - Constitutional Appears: Non-toxic, No Acute Distress - Head Exam Head Exam: ATRAUMATIC - ENT Exam ENT Exam: Mucous Membranes Moist - Respiratory Exam Respiratory Exam: Clear to Ausculation Bilateral, NORMAL BREATHING PATTERN. absent: Rales, Rhonchi, Wheezes - Cardiovascular Exam Cardiovascular Exam: REGULAR RHYTHM. absent: Gallop, Rubs, Murmur - GI/Abdominal Exam GI & Abdominal Exam: Soft, Tenderness. absent: Distended, Firm, Guarding - Extremities Exam Extremities Exam: absent: Calf Tenderness, Pedal Edema - Neurological Exam Neurological Exam: Alert, Awake, Oriented x3 - Psychiatric Exam Psychiatric exam: Normal Affect, Normal Mood - Skin Skin Exam: Dry, Intact, Normal Color, Warm Assessment and Plan - Assessment and Plan (Free Text) Assessment: 36 y/o female with no past medical history is s/p cholecystectomy POD #0. 1. Cholcystectomy - OR this am with Dr. fortune - NS 100 cc - pain management: Diluadid .5 mg PO Q4 prn - Rocephin & flagyl - Zofran for nausea prn - Tylenol prn for fever Workup: - Abd US on admission; cholelithiasis - HIDA scan: Cholecystitis 2. Tobacco abuse - Nicotin patch 3. Prophylaxis - heparin q12 - protonix 40 mg IVP qd Case discussed with attending Dr. Orr <Remedios Lim - Last Filed: 09/09/16 17:52> Objective - Vital Signs/Intake and Output Vital Signs (last 24 hours): Temp Pulse Resp BP Pulse Ox 98.3 F 20 L 90 H 117/70 95 09/09/16 17:14 09/09/16 17:14 09/09/16 17:14 09/09/16 17:14 09/09/16 17:14 Intake and Output: 09/09/16 09/09/16 06:59 18:59 Intake Total 0 560 Balance 0 560 - Medications Medications: Current Medications Acetaminophen (Tylenol 325mg Tab) 650 mg PO Q6 PRN PRN Reason: Fever >100.4 F Heparin Sodium (Porcine) (Heparin) 5,000 units SC Q12 [facility] PRN Reason: Protocol Last Admin: 09/08/16 22:04 Dose: 5,000 units Hydromorphone HCl (Dilaudid) 0.5 mg IVP Q4H PRN PRN Reason: Pain, severe (8-10) Last Admin: 09/09/16 13:26 Dose: 0.5 mg Ceftriaxone Sodium (Rocephin 1 Gram Ivpb) 100 mls @ 100 mls/hr IVPB DAILY [facility] PRN Reason: Protocol Last Admin: 09/09/16 12:49 Dose: 100 mls/hr Metronidazole (Flagyl) 100 mls @ 100 mls/hr IVPB Q8 [facility] PRN Reason: Protocol Last Admin: 09/09/16 14:35 Dose: 100 mls/hr Sodium Chloride (Sodium Chloride 0.9%) 1,000 mls @ 125 mls/hr IV .Q8H [facility] Nicotine (Nicoderm Cq) 1 patch TD DAILY [facility] Last Admin: 09/09/16 12:49 Dose: 1 patch Ondansetron HCl (Zofran Inj) 4 mg IVP Q6H PRN PRN Reason: Nausea/Vomiting Last Admin: 09/09/16 13:26 Dose: 4 mg Pantoprazole Sodium (Protonix Inj) 40 mg IVP DAILY [facility] Last Admin: 09/09/16 12:51 Dose: 40 mg - Labs Labs: 09/09/16 15:00 09/09/16 07:47 PT 9.8 Seconds (9.9-11.8) L 09/08/16 07:30 INR 0.91 (0.93-1.08) L 09/08/16 07:30 APTT 30.1 Seconds (23.7-30.8) 09/08/16 07:30 Assessment and Plan - Assessment and Plan (Free Text) Assessment: Attending note; Patient is a 36-year-old female with a past medical history of GERD , anxiety , obesity is admitted with intractable right upper quadrant pain since this morning. Patient had recurrent colicky pain for the past 1 month. Abdominal ultrasound shows gallstones. s/p lap cholecystectomy today. Follow up closely. Started on liquid diet. Regular diet tomorrow. Possible DC tomorrow with po antibiotics. Upon discharge patient will follow-up with PMD Dr.mervin Pozo. Attending/Attestation - Attestation I have personally seen and examined this patient.: Yes I have fully participated in the care of the patient.: Yes I have reviewed all pertinent clinical information, including history, physical exam and plan: Yes
[2016-09-09] MEDS ORDERED: Neostigmine Methylsulfate 3mg/3ml Syringe IV ONE (10:40)
[2016-09-09] MEDS ORDERED: Glycopyrrolate 0.2 mg/ml (2ml vial) ONE (10:41)
[2016-09-09] MEDS ORDERED: HYDROmorphone 0.5 mg/0.5 ml ISec IVP PRN ×2 (11:13→19:10)
--- NOTE | 2016-09-09 11:13 | PCM.SURG1 ---
Surgeon's Initial Post Op Note - Surgeon's Notes Surgeon: Keenan Doctor Of Nurse Anesthesia Practice: [facility] PGY1, [facility] PGY1, [facility] MS3 Type of Anesthesia: General Endo, Local Anesthesia Administered By: Eliezer Pre-Operative Diagnosis: Acute Choecystitis Operative Findings: same Post-Operative Diagnosis: same Operation Performed: Laparoscopic Cholecystectomy Specimen/Specimens Removed: Gallbladder with Gallstones Estimated Blood Loss: EBL {In ML}: 5 Blood Products Given: N/A Drains Used: No Drains Post-Op Condition: Good Date of Surgery/Procedure: 09/09/16 Time of Surgery/Procedure: 11:14
[2016-09-09] MEDS ORDERED: Lactated Ringer's 1,000 ML IV SCH (11:15)
[2016-09-09] MEDS ORDERED: Sodium Chloride 0.9% 1,000 ML IV SCH (11:17)
[2016-09-09] MEDS: cefTRIAXone 1 gm 100 ML IVPB SCH (12:49)
[2016-09-09] MEDS: HYDROmorphone 0.5 mg/0.5 ml ISec IVP PRN (13:26)
[2016-09-09 15:21] LABS: HEMATOCRIT 38.5 % (36.0-48.0)
[2016-09-09] MEDS ORDERED: POLYETHYLENE GLYCOL 3350 17 GM/Dose PACKET PO ONE (21:27)
[2016-09-10] MEDS: HYDROmorphone 0.5 mg/0.5 ml ISec IVP PRN (04:25)
[2016-09-10] MEDS: metroNIDAZOLE IV 500 mg/100 ml 100 ML IVPB SCH (05:25)
[2016-09-10] MEDS ORDERED: POLYETHYLENE GLYCOL 3350 17 GM/Dose PACKET PO ONE (06:15)
[2016-09-10] MEDS ORDERED: Oxycodone/Acetaminophen 5/325 mg Tab PO PRN (07:00)
[2016-09-10 07:44] VITALS: BP 157/90; PULSE 77; RESP 19; TEMP 98.5; O2SAT 96
[2016-09-10 07:47] LABS: HEMATOCRIT 36.6 % (36.0-48.0); MEAN CELL VOLUME 90.6 fL (80.0-105.0); MEAN CORPUSCULAR HEMOGLOBIN 29.7 pg (25.0-35.0); MEAN CORPUSCULAR HGB CONC 32.8 g/dl (31.0-37.0); MEAN PLATELET VOLUME 12.5 fl (7.0-11.0); RED CELL DISTRIBUTION WIDTH 14.8 % (11.5-14.5); WHITE BLOOD COUNT 11.6 10^3/ul (4.5-11.0)
--- NOTE | 2016-09-10 07:57 | NM ---
PROCEDURE: Nuclear Medicine Hepatobiliary Scan HISTORY: cholelithiasis COMPARISON: 09/08/2016 abdominal ultrasound. TECHNIQUE: 6.4 mCi of technetium 99m Mebrofenin was administered intravenously. Planar images of the abdomen were obtained at 5 min intervals to 60 mins. Delayed images were also obtained. FINDINGS: LIVER: Timely and homogenous uptake. COMMON BILE DUCT: identified at 5 mins. GALLBLADDER: Does not visualize at 4 hours. . SMALL BOWEL: Identified at five mins. IMPRESSION: Abnormal hepatobiliary scan. The cystic duct is occluded consistent with clinically suspected acute cholecystitis.
[2016-09-10 08:02] LABS: ALKALINE PHOSPHATASE 74 U/L (38-133); ALT/SGPT 33 U/L (7-56); AST/SGOT 33 U/L (15-39); BILIRUBIN,TOTAL 0.9 mg/dL (0.2-1.3); BLOOD UREA NITROGEN 9 mg/dL (7-21); CALCIUM 8.3 mg/dL (8.4-10.5); CARBON DIOXIDE 28 mmol/L (21-33); CHLORIDE 105 mmol/L (95-110); GFR AFRICAN-AMERICAN > 60; GLUCOSE,RANDOM 79 mg/dL (70-110); POTASSIUM 3.7 mmol/L (3.6-5.0); SODIUM 145 mmol/L (132-148); TOTAL PROTEIN 7.8 g/dL (5.8-8.3)
--- NOTE | 2016-09-10 08:55 | CP.PCM.PN ---
<PrernaAxel - Last Filed: 09/10/16 09:08> Subjective - Date & Time of Evaluation Date of Evaluation: 09/10/16 Time of Evaluation: 08:00 - Subjective Subjective: Surgery Progress note. Dr. Hussein Patient seen and evaluated at bedside. No acute events overnight. No N/V/D. Tolerating diet. Abd pain improving. Pain well tolerated. No F/C. States that she is passing gas, no BM since surgery. Objective - Vital Signs/Intake and Output Vital Signs (last 24 hours): Temp Pulse Resp BP Pulse Ox 98.5 F 77 19 157/90 H 96 09/10/16 06:00 09/10/16 06:00 09/10/16 06:00 09/10/16 06:00 09/10/16 06:00 Intake and Output: 09/10/16 09/10/16 06:59 18:59 Intake Total 0 Balance 0 - Medications Medications: Current Medications Acetaminophen (Tylenol 325mg Tab) 650 mg PO Q6 PRN PRN Reason: Fever >100.4 F Heparin Sodium (Porcine) (Heparin) 5,000 units SC Q12 [facility] PRN Reason: Protocol Last Admin: 09/08/16 22:04 Dose: 5,000 units Ceftriaxone Sodium (Rocephin 1 Gram Ivpb) 100 mls @ 100 mls/hr IVPB DAILY [facility] PRN Reason: Protocol Last Admin: 09/09/16 12:49 Dose: 100 mls/hr Metronidazole (Flagyl) 100 mls @ 100 mls/hr IVPB Q8 [facility] PRN Reason: Protocol Last Admin: 09/10/16 05:25 Dose: 100 mls/hr Nicotine (Nicoderm Cq) 1 patch TD DAILY [facility] Last Admin: 09/09/16 12:49 Dose: 1 patch Ondansetron HCl (Zofran Inj) 4 mg IVP Q6H PRN PRN Reason: Nausea/Vomiting Last Admin: 09/09/16 13:26 Dose: 4 mg Oxycodone/Acetaminophen (Percocet 5/325 Mg Tab) 1 tab PO Q4H PRN PRN Reason: Pain, moderate (4-7) Stop: 09/13/16 07:01 Pantoprazole Sodium (Protonix Inj) 40 mg IVP DAILY [facility] Last Admin: 09/09/16 12:51 Dose: 40 mg Polyethylene Glycol (Miralax) 17 gm PO DAILY [facility] - Labs Labs: 09/10/16 07:30 09/10/16 07:30 PT 9.8 Seconds (9.9-11.8) L 09/08/16 07:30 INR 0.91 (0.93-1.08) L 09/08/16 07:30 APTT 30.1 Seconds (23.7-30.8) 09/08/16 07:30 - Constitutional Appears: Well, No Acute Distress - Head Exam Head Exam: ATRAUMATIC, NORMAL INSPECTION, NORMOCEPHALIC - Eye Exam Eye Exam: EOMI, Normal appearance. absent: Scleral icterus - ENT Exam ENT Exam: Mucous Membranes Moist - Respiratory Exam Respiratory Exam: NORMAL BREATHING PATTERN - Cardiovascular Exam Cardiovascular Exam: RRR. absent: JVD - GI/Abdominal Exam GI & Abdominal Exam: Soft. absent: Distended, Guarding, Rigid Additional comments: Two abdominal surgical incisions, well approximated. - Extremities Exam Extremities Exam: Normal Inspection - Psychiatric Exam Psychiatric exam: Normal Affect, Normal Mood Assessment and Plan - Assessment and Plan (Free Text) Assessment: 36yo F with acute cholecystitis. Lap Ethel with IOC on 09/09. POD1 - Cleared for discharge from surgery standpoint. - Discharge patient on Keflex and Percocet - Follow up with Dr. Hussein in 7-10 days. Call for appointment - Patient may shower, no baths or soaks. Discussed case with Dr. Keenan Graff PGY1 <Agustín Hussein - Last Filed: 09/10/16 14:22> Subjective - Date & Time of Evaluation Date of Evaluation: 09/10/16 Time of Evaluation: 09:30 Objective - Vital Signs/Intake and Output Vital Signs (last 24 hours): Temp Pulse Resp BP Pulse Ox 98.5 F 77 19 157/90 H 96 09/10/16 06:00 09/10/16 06:00 09/10/16 06:00 09/10/16 06:00 09/10/16 06:00 Intake and Output: 09/10/16 09/10/16 06:59 18:59 Intake Total 0 Balance 0 - Labs Labs: 09/10/16 07:30 09/10/16 07:30 PT 9.8 Seconds (9.9-11.8) L 09/08/16 07:30 INR 0.91 (0.93-1.08) L 09/08/16 07:30 APTT 30.1 Seconds (23.7-30.8) 09/08/16 07:30 Assessment and Plan - Assessment and Plan (Free Text) Assessment: Patient was seen, evaluated and examined by me. I agree with the assessment and plan as per the resident's note.
--- NOTE | 2016-09-10 09:11 | CP.PCM.DIS ---
<Sury Mejia - Last Filed: 09/10/16 11:48> Provider - Provider Date of Admission: 09/08/16 08:27 Attending physician: Catherine Prieto MD Primary care physician: Aniceto Samano MD Consults: Surgery: [place] Time Spent in preparation of Discharge (in minutes): 45 Diagnosis - Discharge Diagnosis (1) S/P cholecystectomy Status: Acute Hospital Course - Lab Results Lab Results: Most Recent Lab Values WBC 11.6 10^3/ul (4.5-11.0) H 09/10/16 07:30 RBC 4.04 10^6/uL (3.5-6.1) 09/10/16 07:30 Hgb 12.0 gm/dL (12.0-16.0) 09/10/16 07:30 Hct 36.6 % (36.0-48.0) 09/10/16 07:30 MCV 90.6 fL (80.0-105.0) 09/10/16 07:30 MCH 29.7 pg (25.0-35.0) 09/10/16 07:30 MCHC 32.8 g/dl (31.0-37.0) 09/10/16 07:30 RDW 14.8 % (11.5-14.5) H 09/10/16 07:30 Plt Count 233 10^3/uL (120.0-450.0) 09/10/16 07:30 MPV 12.5 fl (7.0-11.0) H 09/10/16 07:30 Gran % 59.6 % (50.0-68.0) 09/09/16 07:47 Lymph % (Auto) 27.3 % (22.0-35.0) 09/09/16 07:47 Saunders % (Auto) 8.5 % (1.0-6.0) H 09/09/16 07:47 Eos % (Auto) 4.1 % (1.5-5.0) 09/09/16 07:47 Baso % (Auto) 0.5 % (0.0-3.0) 09/09/16 07:47 Gran # 6.50 (1.4-6.5) 09/09/16 07:47 Lymph # 3.0 (1.2-3.4) 09/09/16 07:47 Saunders # 0.9 (0.1-0.6) H 09/09/16 07:47 Eos # 0.5 (0.0-0.7) 09/09/16 07:47 Baso # 0.05 K/mm3 (0.0-2.0) 09/09/16 07:47 PT 9.8 Seconds (9.9-11.8) L 09/08/16 07:30 INR 0.91 (0.93-1.08) L 09/08/16 07:30 APTT 30.1 Seconds (23.7-30.8) 09/08/16 07:30 Sodium 145 mmol/L (132-148) 09/10/16 07:30 Potassium 3.7 mmol/L (3.6-5.0) 09/10/16 07:30 Chloride 105 mmol/L (95-110) 09/10/16 07:30 Carbon Dioxide 28 mmol/L (21-33) 09/10/16 07:30 Anion Gap 16 (10-20) 09/10/16 07:30 BUN 9 mg/dL (7-21) 09/10/16 07:30 Creatinine 0.8 mg/dL (0.5-1.4) 09/10/16 07:30 Est GFR ( Amer) > 60 09/10/16 07:30 Est GFR (Non-Af Amer) > 60 09/10/16 07:30 Random Glucose 79 mg/dL (70-110) 09/10/16 07:30 Calcium 8.3 mg/dL (8.4-10.5) L 09/10/16 07:30 Total Bilirubin 0.9 mg/dL (0.2-1.3) 09/10/16 07:30 Direct Bilirubin 0.4 mg/dL (0.0-0.4) 09/08/16 07:30 AST 33 U/L (15-39) 09/10/16 07:30 ALT 33 U/L (7-56) 09/10/16 07:30 Alkaline Phosphatase 74 U/L (38-133) 09/10/16 07:30 Total Protein 7.8 g/dL (5.8-8.3) 09/10/16 07:30 Albumin 4.0 g/dL (3.0-4.8) 09/10/16 07:30 Globulin 3.8 gm/dL 09/10/16 07:30 Albumin/Globulin Ratio 1.0 (1.1-1.8) L 09/10/16 07:30 Lipase 197 U/L (23-300) 09/08/16 07:30 Urine Color Yellow (YELLOW) 09/09/16 03:10 Urine Appearance Clear (CLEAR) 09/09/16 03:10 Urine pH 6.0 (4.7-8.0) 09/09/16 03:10 Ur Specific [place] 1.020 (1.005-1.035) 09/09/16 03:10 Urine Protein Negative mg/dL (<30 mg/dL) 09/09/16 03:10 Urine Glucose (UA) Negative mg/dL (NEGATIVE) 09/09/16 03:10 Urine Ketones Negative mg/dL (NEGATIVE) 09/09/16 03:10 Urine Blood Negative (NEGATIVE) 09/09/16 03:10 Urine Nitrate Negative (NEGATIVE) 09/09/16 03:10 Urine Bilirubin Negative (NEGATIVE) 09/09/16 03:10 Urine Urobilinogen 0.2 E.U./dL (<1 E.U./dL) 09/09/16 03:10 Ur Leukocyte Esterase Negative Celina/uL (NEGATIVE) 09/09/16 03:10 Urine HCG, Qual Negative (NEGATIVE) 09/09/16 03:10 - Hospital Course Hospital Course: 36 year old female with no significant past medical history presents with abdominal pain. Pain has been intermittent for one month but this morning pain was so severe that it woke pt up from sleep. Pain this morning was accompanied with nausea. Pain is not associated with meals. Patient also c/o of vomiting, chills and cough. Patient denies having any Cp, SOB, fevers, or urinary symptoms. Last meal was last night for dinner. She had [place] food. Denies having any vomiting over night. Patient has seen her PMD, Dr. Catracho Samano for this pain about 2 months ago. At the time she was given a prescription for acid reflux. Patient is currently not taking any medications. Ultrasound of abdomen was done which showed cholelithiasis. On blood work, LFTs and T bilirubin and lipase were normal. Surgery was consulted. HIDA scan showed cholecystitis. Patient had laprascopic cholecystectomy and was discharged on POD #1. Patient was passing gas, tolerating diet and had minimal abdominal discomfort after the procedure. Patient is to follow up with PMD upon discharge. Patient is to follow up with Dr. Hussein in 7-10 days. Patient is discharged with the following medications: Keflex 500 mg PO Q12h #14 , Percocet 5-325 Q6h prn pain #12 and Colace 100 mg po bid prn constipation # 20. Script sent to [facility] in [facility] and printed out and given to patient. Please see MAR for full details. - Date & Time of H&P Date of H&P: 09/10/16 Time of H&P: 09:08 Discharge Exam - Head Exam Head Exam: ATRAUMATIC - Eye Exam Eye Exam: EOMI Pupil Exam: PERRL - ENT Exam ENT Exam: Mucous Membranes Moist - Respiratory Exam Respiratory Exam: Clear to PA & Lateral, NORMAL BREATHING PATTERN. absent: Accessory Muscle Use, Rales, Rhonchi, Wheezes - Cardiovascular Exam Cardiovascular Exam: REGULAR RHYTHM, RRR, +S1, +S2. absent: Gallop, Rubs, Systolic Murmur - GI/Abdominal Exam GI & Abdominal Exam: Normal Bowel Sounds, Unremarkable. absent: Firm, Guarding , Rigid, Soft, Tenderness - Extremities Exam Additional comments: no edema or tenderness - Neurological Exam Neurological exam: Alert, Oriented x3 - Psychiatric Exam Psychiatric exam: Normal Affect, Normal Mood - Skin Skin Exam: Dry, Intact, Normal Color, Warm Discharge Plan - Discharge Medications Prescriptions: Docusate [Colace] 100 mg PO BID PRN #20 cap PRN Reason: Constipation Cephalexin [cephalexin] 500 mg PO BID 7 Days oxyCODONE/Acetaminophen [Percocet 5/325 mg Tab] 1 tab PO Q4H PRN #12 tab PRN Reason: Pain, Moderate (4-7) - Follow Up Plan Condition: GOOD Disposition: HOME/ ROUTINE Instructions: Laparoscopic Cholecystectomy (DC), Abdominal Pain (ED) Additional Instructions: Patient is to follow up with PMD, Dr. Rene upon discharge. Patient is to follow up with Dr. Hussein in 7-10 days. Patient is discharged with the following medications: Keflex 500 mg PO Q12h #14 , Percocet 5-325 Q6h prn pain #12, and Colace 100 mg PO BID prn constipation # 20 tabs. Scripts are sent to [facility] in [facility]. Percocet script is given to patient. Referrals: Agustín Hussein MD [Staff Provider] - Aniceto Samano MD [Primary Care Provider] - <Catherine Prieto - Last Filed: 09/10/16 15:19> Provider - Provider Date of Admission: 09/08/16 08:27 Attending physician: Catherine Prieto MD Primary care physician: Aniceto Samano MD Hospital Course - Lab Results Lab Results: Most Recent Lab Values WBC 11.6 10^3/ul (4.5-11.0) H 09/10/16 07:30 RBC 4.04 10^6/uL (3.5-6.1) 09/10/16 07:30 Hgb 12.0 gm/dL (12.0-16.0) 09/10/16 07:30 Hct 36.6 % (36.0-48.0) 09/10/16 07:30 MCV 90.6 fL (80.0-105.0) 09/10/16 07:30 MCH 29.7 pg (25.0-35.0) 09/10/16 07:30 MCHC 32.8 g/dl (31.0-37.0) 09/10/16 07:30 RDW 14.8 % (11.5-14.5) H 09/10/16 07:30 Plt Count 233 10^3/uL (120.0-450.0) 09/10/16 07:30 MPV 12.5 fl (7.0-11.0) H 09/10/16 07:30 Gran % 59.6 % (50.0-68.0) 09/09/16 07:47 Lymph % (Auto) 27.3 % (22.0-35.0) 09/09/16 07:47 Saunders % (Auto) 8.5 % (1.0-6.0) H 09/09/16 07:47 Eos % (Auto) 4.1 % (1.5-5.0) 09/09/16 07:47 Baso % (Auto) 0.5 % (0.0-3.0) 09/09/16 07:47 Gran # 6.50 (1.4-6.5) 09/09/16 07:47 Lymph # 3.0 (1.2-3.4) 09/09/16 07:47 Saunders # 0.9 (0.1-0.6) H 09/09/16 07:47 Eos # 0.5 (0.0-0.7) 09/09/16 07:47 Baso # 0.05 K/mm3 (0.0-2.0) 09/09/16 07:47 PT 9.8 Seconds (9.9-11.8) L 09/08/16 07:30 INR 0.91 (0.93-1.08) L 09/08/16 07:30 APTT 30.1 Seconds (23.7-30.8) 09/08/16 07:30 Sodium 145 mmol/L (132-148) 09/10/16 07:30 Potassium 3.7 mmol/L (3.6-5.0) 09/10/16 07:30 Chloride 105 mmol/L (95-110) 09/10/16 07:30 Carbon Dioxide 28 mmol/L (21-33) 09/10/16 07:30 Anion Gap 16 (10-20) 09/10/16 07:30 BUN 9 mg/dL (7-21) 09/10/16 07:30 Creatinine 0.8 mg/dL (0.5-1.4) 09/10/16 07:30 Est GFR ( Amer) > 60 09/10/16 07:30 Est GFR (Non-Af Amer) > 60 09/10/16 07:30 Random Glucose 79 mg/dL (70-110) 09/10/16 07:30 Calcium 8.3 mg/dL (8.4-10.5) L 09/10/16 07:30 Total Bilirubin 0.9 mg/dL (0.2-1.3) 09/10/16 07:30 Direct Bilirubin 0.4 mg/dL (0.0-0.4) 09/08/16 07:30 AST 33 U/L (15-39) 09/10/16 07:30 ALT 33 U/L (7-56) 09/10/16 07:30 Alkaline Phosphatase 74 U/L (38-133) 09/10/16 07:30 Total Protein 7.8 g/dL (5.8-8.3) 09/10/16 07:30 Albumin 4.0 g/dL (3.0-4.8) 09/10/16 07:30 Globulin 3.8 gm/dL 09/10/16 07:30 Albumin/Globulin Ratio 1.0 (1.1-1.8) L 09/10/16 07:30 Lipase 197 U/L (23-300) 09/08/16 07:30 Urine Color Yellow (YELLOW) 09/09/16 03:10 Urine Appearance Clear (CLEAR) 09/09/16 03:10 Urine pH 6.0 (4.7-8.0) 09/09/16 03:10 Ur Specific [place]amo 1.020 (1.005-1.035) 09/09/16 03:10 Urine Protein Negative mg/dL (<30 mg/dL) 09/09/16 03:10 Urine Glucose (UA) Negative mg/dL (NEGATIVE) 09/09/16 03:10 Urine Ketones Negative mg/dL (NEGATIVE) 09/09/16 03:10 Urine Blood Negative (NEGATIVE) 09/09/16 03:10 Urine Nitrate Negative (NEGATIVE) 09/09/16 03:10 Urine Bilirubin Negative (NEGATIVE) 09/09/16 03:10 Urine Urobilinogen 0.2 E.U./dL (<1 E.U./dL) 09/09/16 03:10 Ur Leukocyte Esterase Negative Celina/uL (NEGATIVE) 09/09/16 03:10 Urine HCG, Qual Negative (NEGATIVE) 09/09/16 03:10 Attending/Attestation - Attestation I have personally seen and examined this patient.: Yes I have fully participated in the care of the patient.: Yes I have reviewed all pertinent clinical information, including history, physical exam and plan: Yes Notes (Text): I have seen and examined patient at bedside. This is 36 year old female with history of GERD , anxiety, morbid obesity who got admitted for RUQ pain and found to have acute cholecystitis. She underwent lap cholecystectomy yesterday. Today she had breakfast which she tolerated well. Also she has been passing gas and had 1 BM. She is requesting for colace. Discussed with Dr Joiner. Plan to discharge her today on PO antibiotics. Upon discharge patient will follow-up with PMD Dr.Mervin Pozo. Dr Catherine Prieto
[2016-09-10] MEDS: cefTRIAXone 1 gm 100 ML IVPB SCH (09:20)
[2016-09-10] MEDS ORDERED: POLYETHYLENE GLYCOL 3350 17 GM/Dose PACKET PO SCH (10:00)
--- NOTE | 2016-09-10 14:46 | OP ---
PROCEDURE DATE: 09/09/2016 PREOPERATIVE DIAGNOSES: Acute cholecystitis, cholelithiasis. POSTOPERATIVE DIAGNOSES: Acute cholecystitis, cholelithiasis. PROCEDURE PERFORMED: Laparoscopic cholecystectomy with intraoperative cholangiogram. SURGEON: Dr. Hussein STONE PRODUCT FABRICATOR: Dr. Celestin ANESTHESIOLOGIST: Dr. Martins ANESTHESIA: General endotracheal. ESTIMATED BLOOD LOSS: Minimal. SPECIMENS: Gallbladder, gallstones. The patient is a 36-year-old female who was admitted to the hospital the night before with complaints of abdominal pain and nausea and vomiting. The patient was started on IV hydration, given antibioti cs and ultrasound and HIDA scan were obtained. HIDA scan showed presence of obstructed cystic duct a nd the decision was made to proceed with the surgery in the morning. The patient was brought to the operating room and placed on the operating table in a supine position. The patient was connected to EKG, blood pressure and pulse oximeter monitors. The patient then und erwent general endotracheal anesthesia and was prepped and draped in usual sterile fashion. First, standard timeout procedure took place and everybody in the room agreed as to the patient's tayo ntity, diagnosis and procedure to be performed. Using 2 towel clips, the anterior abdominal wall was elevated and a Veress needle was inserted throug h a small incision superior to the umbilicus. Once hemoperitoneum was obtained, 12 mm trocar was ins erted into the abdominal cavity and careful evaluation of abdominal cavity revealed the presence of d ilated and distended gallbladder with pericholecystic edema within the fat around the gallbladder. I then placed a second 5 mm trocar and proceeded with dissection of the infundibulum, which was elevat ed and the cystic duct was dissected out after identifying the cystic duct lymph node. The cystic du ct was cleared from the surrounding tissue and edema and so was the cystic artery, which was directly behind it. The cystic duct was then clipped and a small incision was made on the side of it and a c holangiogram catheter was inserted into the cystic duct. Now, under direct visualization of fluorosc opy, cholangiogram was obtained, revealing presence of prompt flow of dye filling the entire biliary tree and promptly emptying into the duodenum. There was no evidence of any common bile duct stones. The cholangiogram catheter was now removed and the cystic duct was clipped distally and transected. The cystic artery also was clipped and transected and gallbladder was carefully detached from its li maged bed using electrocautery. Once completely detached, the gallbladder was placed in an EndoCatch b ag and removed through the periumbilical incision. The gallbladder contained multiple small stones. The abdominal cavity was now copiously irrigated, mostly in the right upper quadrant, and all the ir rigant fluid was suctioned out. There was excellent hemostasis. The trocars were then removed after they were checked for no evidence of bleeding. The pneumoperitoneum was released, trocars removed a nd the wounds closed using 0 Vicryl for the fascia, 3-0 Vicryl for subcutaneous tissue and 4-0 Monocr yl for skin. A sterile Dermabond dressing was applied to the wound. The patient tolerated the proce dure well and there were no complications. The patient was awakened, extubated and transferred to re covery room for further observation. Agustín Hussein MD cc: [id number] TT: 09/10/2016 14:45:51 en
--- NOTE | 2016-10-16 16:00 | RAD ---
PROCEDURE: Fluoroscopy over 1 hour HISTORY: LAPECHOLE COMPARISON: TECHNIQUE: Fluoroscopy was provided in the operating room. Three images were submitted FINDINGS: There is contrast in the common duct with no filling defects. Contrast flows into the duodenum without obstruction IMPRESSION: As above
== END 2016-09-10 14:18 | disposition home or self-care (01) | DRG 418 ==
LOC: ED 07:11 → ERH 08:27 → 3RNO 10:07
PROVIDERS: ADMIT Internal Medicine; ATTEND Hospitalist
PROC: BF131ZZ Fluoroscopy of Gallbladder and Bile Ducts using Low Osmolar Contrast (ICD-10-PCS; 2016-09-09)
PROC: 0FT44ZZ Resection of Gallbladder, Percutaneous Endoscopic Approach (ICD-10-PCS; principal; 2016-09-09 08:30)
DX: K80.12 Calculus of gallbladder with acute and chronic cholecystitis without obstruction (principal); Z68.41 Body mass index [BMI] 40.0-44.9, adult; E66.01 Morbid (severe) obesity due to excess calories; F17.210 Nicotine dependence, cigarettes, uncomplicated; K21.9 Gastro-esophageal reflux disease without esophagitis; F12.90 Cannabis use, unspecified, uncomplicated; F41.8 Other specified anxiety disorders; Z90.710 Acquired absence of both cervix and uterus